=== PATIENT | female | born 1950 | race Asian ===

== ENCOUNTER 2019-10-04 12:51 | Emergency (ER) | payer OTHER, MEDICAID ==
[~2019-10-04] VITALS: Ht 162.6 cm; Wt 86.2 kg
[2019-10-04 12:52] VITALS: BP_SYST 130
[2019-10-04 14:12] LABS: BASOPHILS % (AUTO) 0.5 % (0.0-2.0); EOSINOPHILS % (AUTO) 0.2 % (0.0-4.0); HEMATOCRIT 41.1 % (36-48); LYMPHOCYTES # (AUTO) 0.9 K/uL (1.0-5.5); LYMPHOCYTES % (AUTO) 9.6 % (20.5-51.5); MEAN CORPUSCULAR HEMOGLOBIN 32 pg (27-31); MEAN CORPUSCULAR HGB CONC 34 % (32-36); MEAN CORPUSCULAR VOLUME 93 fL (79.0-98.0); MONOCYTES # (AUTO) 0.6 K/uL (0.0-1.0); MONOCYTES % (AUTO) 6.9 % (1.7-9.3); NEUTROPHILS # (AUTO) 7.3 K/uL (1.8-7.7); NEUTROPHILS % (AUTO) 82.8 % (40.0-70.0); PLATELET COUNT (AUTO) 104 K/uL (130-430); RED BLOOD CELL COUNT(AUTO) 4.41 MIL/uL (4.2-6.2); RED CELL DISTRIBUTION WIDTH 13.7 % (9.0-15.0); WHITE BLOOD COUNT (AUTO) 8.9 K/uL (4.8-10.8)
[2019-10-04 14:24] LABS: CALCIUM 9.4 mg/dL (8.4-11.0); CREATININE 0.81 mg/dL (0.55-1.30); POTASSIUM 4.4 mmol/L (3.5-5.1)
[2019-10-04 14:30] LABS: ALBUMIN 3.8 g/dL (3.4-4.8)
[2019-10-04 15:17] LABS: CREATINE KINASE MB 2.2 ng/mL (0-3.6)
[2019-10-04] MEDS ORDERED: INSULIN REGULAR, HUMAN 10 UNITS/0.1 ML INJ SUBCUT ONE (16:00)
[2019-10-04 16:50] VITALS: BP_SYST 130
== END 2019-10-04 16:50 | disposition home or self-care (01) ==
LOC: SED 12:51
DX: E11.65 Type 2 diabetes mellitus with hyperglycemia (principal); I16.0 Hypertensive urgency
CPT/HCPCS: 36415; 71045; 80053; 82550; 82553; 83880; 84484; 85025; 93005; 96374; 99284; J1815

== ENCOUNTER 2022-06-15 13:19 | Emergency (ER) | payer OTHER, MEDICAID ==
[~2022-06-15] VITALS: Ht 162.6 cm; Wt 90.7 kg
--- NOTE | 2022-06-15 13:25 | NUR ---
Pt brought by son, A&Ox4, pt presents to ER with L foot pain since this am, afebrile, VSS, denies trauma, skin pink and warm, cap refill <3, will cont to monitor.
[2022-06-15 13:29] VITALS: BP_SYST 136
--- NOTE | 2022-06-15 19:12 | NUR ---
Called patient x 1 , no answer
== END 2022-06-15 19:12 | disposition left against medical advice (07) ==
LOC: SED 13:19
DX: M79.672 Pain in left foot (principal); Z53.21 Procedure and treatment not carried out due to patient leaving prior to being seen by health care provider